=== PATIENT | male | born 1990 | race Caucasian/White ===

== ENCOUNTER 2017-04-25 05:58 | Emergency (ER) | payer OTHER, BC ==
[~2017-04-25] VITALS: Ht 185.4 cm; Wt 90.0 kg
[2017-04-25 06:07] VITALS: BP 169/95
[2017-04-25] MEDS ORDERED: LIDOCAINE W/EPINEPHRINE 1% 20ML VIAL SC ONE (06:45)
== END 2017-04-25 07:44 | disposition home or self-care (01) ==
LOC: M ED 05:58
DX: S81.811A Laceration without foreign body, right lower leg, initial encounter (principal); W26.0XXA Contact with knife, initial encounter; Y92.89 Other specified places as the place of occurrence of the external cause; Y93.89 Activity, other specified; Y99.0 Civilian activity done for income or pay

== ENCOUNTER 2019-07-31 20:55 | Emergency (ER) | payer BC, OTHER ==
[~2019-07-31] VITALS: Ht 185.4 cm; Wt 101.1 kg
[2019-07-31] MEDS ORDERED: NS 1,000 ML IV SCH (21:37)
[2019-07-31] MEDS ORDERED: ONDANSETRON 4MG/2ML VIAL (J2405) IV ONE (21:45)
[2019-07-31] MEDS ORDERED: KETOROLAC 30 MG/ML VIAL (J1885) IV ONE (21:45)
[2019-07-31 22:19] LABS: BASO % 0.3 % (0.0-1.0); EOS # 0.1 10^3/uL (0.0-0.5); EOS % 0.7 % (0.0-3.0); HEMATOCRIT 46.3 % (42.0-52.0); LYMPH # 1.5 10^3/uL (1.5-5.0); LYMPH % 11.4 % (24.0-44.0); MEAN CORPUSCULAR HEMOGLOBIN 29.2 pg (27.0-33.0); MEAN CORPUSCULAR HGB CONC 32.4 g/dl (32.0-36.5); MEAN CORPUSCULAR VOLUME 90.1 fl (80.0-96.0); MONO # 0.6 10^3/uL (0.0-0.8); MONO % 4.3 % (0.0-5.0); NEUTROPHILS # 10.5 10^3/uL (1.5-8.5); PLATELET COUNT, AUTOMATED 287 10^3/uL (150-450); RED BLOOD COUNT 5.14 10^6/uL (4.30-6.10); WHITE BLOOD COUNT 12.7 10^3/uL (4.0-10.0)
[2019-07-31 22:47] LABS: ALBUMIN 4.1 GM/DL (3.2-5.2); ALT/SGPT 25 U/L (12-78); BILIRUBIN,DIRECT 0.3 MG/DL (0.0-0.2); BILIRUBIN,TOTAL 1.1 MG/DL (0.2-1.0); BLOOD UREA NITROGEN 15 MG/DL (7-18); CALCIUM LEVEL 9.4 MG/DL (8.5-10.1); CARBON DIOXIDE LEVEL 30 MEQ/L (21-32); CHLORIDE LEVEL 104 MEQ/L (98-107); CREATININE FOR GFR 0.95 MG/DL (0.70-1.30); GLOMERULAR FILTRATION RATE > 60.0 (>60); GLUCOSE, FASTING 102 MG/DL (70-100); LIPASE 119 U/L (73-393); POTASSIUM SERUM 4.5 MEQ/L (3.5-5.1); SODIUM LEVEL 140 MEQ/L (136-145); TOTAL PROTEIN 7.2 GM/DL (6.4-8.2)
[2019-07-31] MEDS ORDERED: OXYCODONE/APAP 5MG/325MG(BULK FOR ED) 1 TABLET PO ONE (23:45)
[2019-07-31] MEDS ORDERED: FLOM0.4C39 PO (23:47)
[2019-07-31] MEDS ORDERED: ZOFR4TAB16 PO (23:47)
[2019-07-31] MEDS ORDERED: PERC5TAB12 PO (23:47)
[2019-08-01 00:08] VITALS: BP 135/81
--- NOTE | 2019-08-02 07:55 | REP ---
SCROTAL ULTRASOUND: 07/31/2019. Clinical history: Right testicular pain and swelling. There are no prior studies. Findings: Sonographic evaluation shows the right testis 4.2 x 2.4 x 2.8 cm and the left is 3.7 x 2.3 x 2.8 cm. Both testes shows normal homogeneous echotexture without mass, cyst, calcification or hydroceles. There is normal color flow bilaterally. CC diameter of the epididymal head is 7.3 mm on the right and 8.2 mm on the left, normal. Normal color flow in each of the epididymi. No varicocele. Doppler tracing shows resistive index of 0.58 on the right and 0.57 on the left with normal color flow and tracings. No torsion. Impression: 1. Bilateral negative ultrasound of the testes with normal bilateral blood flow. No torsion. 2. Wet reading provided by Dr. Pineda of our teleradiology service. Electronically Signed by Andrew Sandhu MD 08/02/2019 08:11 P
--- NOTE | 2019-08-02 08:42 | REP ---
CT ABDOMEN AND PELVIS WITHOUT CONTRAST: 07/31/2019. Clinical history. Right flank pain. Radiation of pain into testis. Technique: Standard noncontrast renal stone protocol with coronal and sagittal reconstructions. Findings: No prior study. CT abdomen and pelvis: The lung bases are clear. Heart not enlarged. No pericardial thickening or effusion and no hiatal hernia. Liver, spleen, gallbladder, pancreas and adrenal glands are normal. The right kidney shows a 3 mm stone in the lower pole jl. There is mild hydronephrosis, extrarenal pelvis and hydroureter which is seen down to the level of about S1 on the axial image 98, sagittal image 63 and coronal image 49. Measures 4 mm by my direct measurement. There is mild hydroureter above and none below. I see no bladder calculus. The left kidney, its collecting system and ureter were normal and without stone. There is no abdominal adenopathy. Appendix is seen and normal. The right colon and hepatic flexure are unremarkable. The transverse colon and splenic flexure to the rectosigmoid showed collapse and slight thickening of the wall without inflammatory changes in the adjacent fat, but this may still represent some mild colitis. Small bowel loops intact. No ventral or inguinal hernia. The bone windows unremarkable. CT pelvis. Bladder unremarkable. No bladder stones, mass or wall thickening. Prostate with a few calcifications but not enlarged. Distal left colon to rectosigmoid with mild thickening of the colonic wall and collapse. No diverticulosis or diverticulitis. Distal small bowel loops intact. No ventral or inguinal hernia. No hydroceles in the scrotum. Impression: 1. There is a 4 mm distal left ureteral stone at about the level of S1 vertebral body in the upper pelvis. This is several centimeters above the UVJ. Mild hydroureter and hydronephrosis above it. The small 3 mm stone lower pole right kidney is noncontributory. 2. Distal right ureter, the entire left ureter collecting system and kidney were unremarkable. 3. No other significant finding. A wet reading provided by Dr. Pineda of our [employer] service. Electronically Signed by Andrew Sandhu MD 08/02/2019 08:13 P
== END 2019-08-01 00:09 | disposition home or self-care (01) ==
LOC: M ED 20:55
DX: N20.1 Calculus of ureter (principal)
CPT/HCPCS: 36415; 74176; 76870; 80048; 80076; 81001; 83690; 85025; 93976; 96360; 96361; 96375; 99284; J1885; J2405

== ENCOUNTER → 2020-07-02 | Outpatient (CLI) | payer SELFPAY ==
[~2020-07-02] MED LIST: FLOM0.4C39 PO; PERC5TAB12 PO; ZOFR4TAB16 PO
== END ==
LOC: M LABSMTC 11:11
PROVIDERS: ATTEND Pediatrics
DX: Z20.828 Contact with and (suspected) exposure to other viral communicable diseases (principal)

== ENCOUNTER → 2020-07-16 | Outpatient (CLI) | payer SELFPAY | LOC: M LABSMTC 11:58 | PROVIDERS: ATTEND Pediatrics | DX: U07.1 COVID-19 (principal) ==

== ENCOUNTER 2021-11-19 22:53 | Emergency (ER) | payer BC ==
[~2021-11-19] VITALS: Ht 185.4 cm; Wt 125.0 kg
[2021-11-20] MEDS ORDERED: PERCOCET 5MG/325MG TAB PO ONE (04:55)
[2021-11-20] MEDS ORDERED: LIDOCAINE 2% MDV 20ML VIAL SC ONE (04:55)
[2021-11-20] MEDS ORDERED: OXYCODONE/APAP 5MG/325MG(BULK FOR ED) 1 TABLET PO ONE (05:40)
[2021-11-20] MEDS ORDERED: BACITRACIN OINTMENT 30GM TUBE TOP ONE (05:40)
[2021-11-20] MEDS ORDERED: CEPH500C PO (05:48)
[2021-11-20] MEDS ORDERED: CEPHALEXIN 500 MG CAP PO ONE (05:50)
[2021-11-20] MEDS ORDERED: BOOSTRIX/ADACEL VACCINE (DIPHTH/PERTUSS/ACELL/TETANUS) 0.5ML SYR IM ONE (05:55)
[2021-11-20 06:05] VITALS: BP 140/78
== END 2021-11-20 06:07 | disposition home or self-care (01) ==
LOC: M ED 22:53
DX: S61.412A Laceration without foreign body of left hand, initial encounter (principal); W29.8XXA Contact with other powered hand tools and household machinery, initial encounter; Y92.009 Unspecified place in unspecified non-institutional (private) residence as the place of occurrence of the external cause; Y93.9 Activity, unspecified; Y99.9 Unspecified external cause status; Z79.899 Other long term (current) drug therapy

== ENCOUNTER → 2022-05-22 | Outpatient (CLI) | payer BC ==
[~2022-05-22] MED LIST changes: +CEPH500C PO
== END ==
LOC: M PLAIMG 11:59
PROVIDERS: ATTEND Nurse Practitioner Family
DX: M54.6 Pain in thoracic spine (principal)

== ENCOUNTER 2022-08-07 01:56 | Emergency (ER) | payer BC, OTHER ==
[~2022-08-07] VITALS: Ht 182.9 cm; Wt 123.9 kg
[2022-08-07] MEDS ORDERED: PRAZ1CAP (02:06)
[2022-08-07] MEDS ORDERED: KETOROLAC 30 MG/ML 1ML VIAL IV ONE (02:15)
[2022-08-07] MEDS ORDERED: ONDANSETRON 4MG 2ML VIAL IV ONE (02:35)
[2022-08-07 02:37] LABS: BASO % 0.4 % (0.0-1.0); EOS % 0.2 % (0.0-3.0); HEMATOCRIT 45.4 % (42.0-52.0); LYMPH # 2.1 10^3/uL (1.5-5.0); LYMPH % 19.4 % (24.0-44.0); MEAN CORPUSCULAR VOLUME 90.8 fl (80.0-96.0); MONO # 0.6 10^3/uL (0.0-0.8); MONO % 5.4 % (2.0-8.0); NEUTROPHILS # 8.2 10^3/uL (1.5-8.5); NEUTROPHILS % 74.3 % (36.0-66.0); PLATELET COUNT, AUTOMATED 251 10^3/uL (150-450)
[2022-08-07] MEDS: MORPHINE 4 MG/ML 1ML VIAL IV PRN ×2 (02:41→03:48)
[2022-08-07 03:08] LABS: LIPASE 29 U/L (12-53)
[2022-08-07 03:10] LABS: ALBUMIN 4.3 G/DL (3.2-5.2); ALKALINE PHOSPHATASE 79 U/L (46-116); ALT/SGPT 43 U/L (7.0-40); AST/SGOT 28 U/L (<34); BILIRUBIN,DIRECT 0.7 MG/DL (<0.4); BILIRUBIN,TOTAL 2.4 MG/DL (0.3-1.2); BLOOD UREA NITROGEN 11 MG/DL (9-23); CALCIUM LEVEL 9.6 MG/DL (8.5-10.1); CARBON DIOXIDE LEVEL 28 MMOL/L (20-31); CHLORIDE LEVEL 100 MMOL/L (98-107); CREATININE FOR GFR 1.07 MG/DL (0.70-1.30); GLOMERULAR FILTRATION RATE > 60.0 (>60); GLUCOSE, FASTING 130 MG/DL (60-100); SODIUM LEVEL 136 MMOL/L (136-145); TOTAL PROTEIN 6.9 G/DL (5.7-8.2)
[2022-08-07] MEDS ORDERED: NS 1,000 ML IV ONE (05:05)
[2022-08-07] MEDS ORDERED: TAMSULOSIN 0.4 MG CAP PO ONE (05:45)
[2022-08-07] MEDS ORDERED: PERCOCET 5MG/325MG TAB PO ONE (06:25)
[2022-08-07] MEDS ORDERED: FLOM0.4C39 PO (06:29)
[2022-08-07] MEDS ORDERED: PERC5TAB12 PO (06:29)
[2022-08-07 06:41] VITALS: BP 136/89
== END 2022-08-07 06:48 | disposition home or self-care (01) ==
LOC: EDSEX 01:56 → M ED 01:56 → EDBD 01:56 → M ED 06:48
DX: N21.1 Calculus in urethra (principal); Z87.442 Personal history of urinary calculi
CPT/HCPCS: 74176; 80047; 80048; 80076; 81000; 81015; 83690; 85025; 93041; 96361; 96374; 96375; 96376; 99285; J1885; J2270; J2405

== ENCOUNTER 2023-11-12 10:47 | Emergency (ER) | payer OTHER ==
[~2023-11-12] VITALS: Ht 185.4 cm; Wt 120.0 kg
[~2023-11-12 10:47] MED LIST changes: +PRAZ1CAP
[2023-11-12 10:49] VITALS: BP 147/98; TEMP 97.8; O2SAT 98
[2023-11-12] MEDS ORDERED: ACET-683 PO (11:05)
[2023-11-12 11:58] LABS: HEMATOCRIT 50.2 % (42.0-52.0); RED BLOOD COUNT 5.52 10^6/uL (4.30-6.10); WHITE BLOOD COUNT 13.3 10^3/uL (4.0-10.0)
[2023-11-12 11:59] LABS: BASO % 0.3 % (0.0-1.0); EOS # 0.1 10^3/uL (0.0-0.5); EOS % 0.5 % (0.0-3.0); LYMPH # 1.6 10^3/uL (1.5-5.0); MEAN CORPUSCULAR HEMOGLOBIN 30.8 pg (27.0-33.0); MEAN CORPUSCULAR HGB CONC 33.9 g/dl (32.0-36.5); MEAN CORPUSCULAR VOLUME 90.9 fl (80.0-96.0); MONO # 1.3 10^3/uL (0.0-0.8); MONO % 9.6 % (2.0-8.0); NEUTROPHILS # 10.3 10^3/uL (1.5-8.5); NEUTROPHILS % 77.2 % (36.0-66.0); PLATELET COUNT, AUTOMATED 204 10^3/uL (150-450)
[2023-11-12 12:30] LABS: LIPASE 30 U/L (12-53)
[2023-11-12 12:33] LABS: ALBUMIN 3.6 G/DL (3.2-5.2); ALKALINE PHOSPHATASE 80 U/L (46-116); ALT/SGPT 56 U/L (7.0-40); AST/SGOT 25 U/L (<34); BILIRUBIN,DIRECT 0.8 MG/DL (<0.4); BILIRUBIN,TOTAL 2.2 MG/DL (0.3-1.2); BLOOD UREA NITROGEN 12 MG/DL (9-23); CALCIUM LEVEL 9.1 MG/DL (8.5-10.1); CARBON DIOXIDE LEVEL 30 MMOL/L (20-31); CHLORIDE LEVEL 103 MMOL/L (98-107); CREATININE FOR GFR 1.05 MG/DL (0.70-1.30); GLOMERULAR FILTRATION RATE > 60.0 (>60); GLUCOSE, FASTING 100 MG/DL (60-100); POTASSIUM SERUM 4.9 MMOL/L (3.5-5.1); SODIUM LEVEL 138 MMOL/L (136-145)
== END 2023-11-12 17:12 | disposition left against medical advice (07) ==
LOC: M ED 10:47
DX: Z53.21 Procedure and treatment not carried out due to patient leaving prior to being seen by health care provider (principal)

== ENCOUNTER 2024-04-22 21:34 | Inpatient (IN) | payer OTHER ==
[~2024-04-22] VITALS: Ht 185.4 cm; Wt 119.1 kg
[~2024-04-22 21:34] MED LIST changes: +ACET-683 PO
[2024-04-22 22:17] LABS: HEMATOCRIT 44.4 % (42.0-52.0); MEAN CORPUSCULAR HEMOGLOBIN 30.7 pg (27.0-33.0); MEAN CORPUSCULAR HGB CONC 33.8 g/dl (32.0-36.5); PLATELET COUNT, AUTOMATED 220 10^3/uL (150-450); RED BLOOD COUNT 4.88 10^6/uL (4.30-6.10); WHITE BLOOD COUNT 8.9 10^3/uL (4.0-10.0)
[2024-04-22 22:39] LABS: ETHYL ALCOHOL (ETHANOL) < 0.003 % (0.000-0.010)
[2024-04-22 22:41] LABS: ALBUMIN 4.1 G/DL (3.2-5.2); ALKALINE PHOSPHATASE 85 U/L (46-116); ALT/SGPT 84 U/L (7.0-40); AST/SGOT 29 U/L (<34); BILIRUBIN,DIRECT 0.6 MG/DL (<0.4); BILIRUBIN,TOTAL 1.9 MG/DL (0.3-1.2); BLOOD UREA NITROGEN 17 MG/DL (9-23); CALCIUM LEVEL 9.3 MG/DL (8.5-10.1); CARBON DIOXIDE LEVEL 29 MMOL/L (20-31); CHLORIDE LEVEL 106 MMOL/L (98-107); CREATININE FOR GFR 1.21 MG/DL (0.70-1.30); GLOMERULAR FILTRATION RATE > 60.0 (>60); GLUCOSE, FASTING 109 MG/DL (60-100); SALICYLATE LEVEL < 3.0 MG/DL (<30); SODIUM LEVEL 140 MMOL/L (136-145); TOTAL PROTEIN 6.9 G/DL (5.7-8.2)
[2024-04-22 22:44] LABS: THYROID STIMULATING HORMONE 2.441 uIU/ML (0.55-4.78)
[2024-04-22 23:02] LABS: BARBITURATES URINE NEGATIVE (NEGATIVE); BENZODIAZEPINES URINE NEGATIVE (NEGATIVE); CANNABINOIDS URINE NEGATIVE (NEGATIVE); COCAINE METABOLITE URINE NEGATIVE (NEGATIVE); METHADONE URINE NEGATIVE (NEGATIVE); OPIATES URINE NEGATIVE (NEGATIVE); PHENCYCLIDINE URINE NEGATIVE (NEGATIVE)
[2024-04-22 23:06] LABS: AMPHETAMINES LEVEL URINE POSITIVE (NEGATIVE)
[2024-04-23 00:18] VITALS: BP 129/66; TEMP 97.1; O2SAT 100
[2024-04-23] MEDS ORDERED: HOME MED LIST COMPLETE! XX SCH (01:15)
[2024-04-23] MEDS ORDERED: MOM 30ML SUSPENSION UDC PO PRN (01:45)
[2024-04-23] MEDS ORDERED: diphenhydrAMINE 25MG CAP PO PRN (01:45)
[2024-04-23] MEDS ORDERED: IBUPROFEN 400MG TAB PO PRN (01:45)
[2024-04-23] MEDS ORDERED: MAALOX 30 ML SUSP *UDC PO PRN (01:45)
[2024-04-23] MEDS ORDERED: traZODone 50 MG TAB PO PRN (01:45)
[2024-04-23] MEDS ORDERED: ACETAMINOPHEN 325 MG TAB PO PRN (01:45)
== END 2024-04-23 11:29 | disposition home or self-care (01) | DRG 882 ==
LOC: M ED 21:34 → M ED INP 04-23 01:42 → M PSY 04-23 08:27
PROVIDERS: ADMIT Psychiatry & Neurology Psychiatry; ATTEND Psychiatry & Neurology Psychiatry
DX: F43.25 Adjustment disorder with mixed disturbance of emotions and conduct (principal); Z63.0 Problems in relationship with spouse or partner